=== PATIENT | female | born 1955 | race Caucasian/White ===

== ENCOUNTER → 2016-10-31 | Outpatient (CLI) | payer MEDICAID ==
[~2016-10-31] MED LIST: 00186-0370-20 IH; ALBUTEROL SULFAT3 M3; ALDACTONE; AMOXICILLIN 8751 TAB PO; ASPIR-LOW81 MG PO; ASPIRIN 32325 MG/TAB PO; ASPIRIN E.C. 8181 MG PO; ATARAX 10MG10 MG/TAB PO; ATROVENT INHALE14 GM IH; ATROVENT NASAL15 ML NS; AUGMENTIN 875 M1 TAB PO; BACTRIM DS 8001 TAB PO; BENADRYL50 MG PO; BUMETANIDE1 MG PO; CALCIUM 600 + V1 TAB PO; CALCIUM 600MG+D1 TAB PO; CALCIUM1 CAP PO; CALCIUM600 M2 PO; CARAFATE 1GM1 G PO; CELEBREX 200MG200 MG PO; CEPHALEXIN500 M1 PO; CIPRO 500MG TA500 MG PO; CLARITIN 1010 MG/TAB PO; CLARITIN10 MG PO; CLEOCIN HC150 MG/CAP PO; CLEOCIN HCL300 MG PO; CLOTRIM ANTIFUNGAL1% TP; CYMBALTA 30MG30 MG PO; CYMBALTA 60MG60 MG PO; CYMBALTA30 M1 PO; CYMBALTA30 MG PO; CYMBALTA60 MG PO; DITROPAN 5MG TAB5 MG PO; DOXYCYCLINE 10100 MG PO; DUONEB 3 MG/3 ML3 ML IH; FERRO-TIME325 MG PO; FERROUS SU325 MG/TAB PO; FERROUS SULFATE65 MG PO; FERROUSAL325 MG PO; FLONASEALLERGY; FLONASEALLERGY NS; FORTAMET1000 MG PO; GABAPENTIN; GABAPENTIN TAB600 MG PO; GABAPENTIN400 M1 PO; GABAPENTIN600 MG PO; GABAPENTIN800 MG PO; GLUCOPHAGE1000 MG PO; GLUCOPHAGE500 MG/TAB PO; IPRATROPIUM BROM3 M1 IH; IRON324 M1 PO; IRON65 M1 PO; K-LOR CON; KLOR-CON20 MEQ PO; LASIX 20MG TABL20 MG PO; LASIX 40MG TABL40 MG PO; LASIX20 MG PO; LEVAQUIN 750MG750 M1 PO; LEVOTHYROXINE PO; LIPITOR20 MG PO; LISINOPRIL20 MG PO; LORATADINE10 MG PO; LOVAZA1 GM; LOVAZA1 GM PO; METFORMIN HCL1000 MG PO; METFORMIN1000 MG PO; METFORMIN500 MG PO; MIRAPEX0.125 MG PO; MIRAPEX0.25 MG PO; MS CONTIN 330 MG/TAB PO; MUCINEX 60600 MG/TA1 PO; MYRBETR25MG PO; NATURAL CALCIUM PO; NATURE'S BLEN1000 IU PO; NEURONTIN400 MG PO; NEURONTIN600 MG/TAB PO; NIASPAN500 MG PO; NITROQUICK0.4 MG SL; NITROSTAT0.4 MG SL; NORCO 325 MG-51 TAB PO; NORCO 325 MG-7.1 TAB PO; PATANOL OPHTHALM5 ML OU; PERCOCET 325 MG1 TAB PO; PIROXICAM; PREDNISONE10 MG PO; PREDNISONE20 MG PO; PREVACID 30MG30 M1 PO; PREVACID 30MG30 MG PO; PRIL40 PO; PROAIR HFA0.09 MG/AC IH; PROVENTIL0.09 MG/A1 IH; REGLAN 5MG T5 MG/TAB PO; RT ADVAIR 528 DISKUS IH; RT SPIRIVA18 MCG IH; SINGULAIR 110 MG/TAB PO; SINGULAIR10 MG PO; SMZ/TMPDS PO; SPIRIVA INH IH; SPIRIVA18 MCG IH; SYMBICORT1 AE1; SYMBICORT1 AE2 IH; SYMBICORT1 AE3 IH; SYMBICORT1 AER IH; SYNTHROID0.05 MG PO; SYNTHROID0.05 MG/TA PO; TRICOR145 MG PO; ULTRAM 50MG TAB50 MG PO; ULTRAM50 MG PO; VENTOLIN0.09 MG IH; VERAPAMIL; VERAPAMIL HCL360 MG PO; VERAPAMIL PO; VERELAN360 MG PO; VICODIN 5/5001 UDTAB PO; VITAMIN C PO; VITAMIN D 400400 IU PO; VITAMIN D1000 IU PO; VITAMIN D2000 I1 PO; VITAMIN D31000 IU PO; VITAMIN D50000 I1 PO; XOPENEX HF0.045 MG/A IH; ZANTAC 300300 MG PO; ZESTRIL 20MG TA20 MG PO; ZYLOPRIM 100MG100 MG PO; [UNRECOGNIZED DRUG - OTHER]
== END ==
LOC: MC.RAD 11:40
DX: Z12.31 Encounter for screening mammogram for malignant neoplasm of breast (principal); Z80.3 Family history of malignant neoplasm of breast

== ENCOUNTER 2016-11-14 11:52 | Observation (INO) | payer MEDICAID ==
[~2016-11-14] VITALS: Ht 170.2 cm; Wt 176.0 kg
[~2016-11-14 11:52] MED LIST changes: -ATROVENT NASAL15 ML NS; -CALCIUM 600MG+D1 TAB PO; -CARAFATE 1GM1 G PO; -FLONASEALLERGY NS; -IPRATROPIUM BROM3 M1 IH; -MUCINEX 60600 MG/TA1 PO; -PATANOL OPHTHALM5 ML OU; -XOPENEX HF0.045 MG/A IH
[2016-11-14] MEDS ORDERED: IPRATROPIUM BROM3 M1 IH (12:10)
[2016-11-14] MEDS ORDERED: ASPIRIN E.C. 8181 MG PO (12:11)
[2016-11-14 12:25] LABS: BASO % 0.3 % (0.0-2.0); EOS # 0.2 (0.0-0.7); EOS % 2.3 % (0-4.0); GRAN # 5.4 (1.4-6.5); GRAN % 68.4 % (42.2-75.2); HEMOGLOBIN 12.2 g/dl (12.5-16.0); LYMPH # 1.1 (1.2-3.4); LYMPH % 14.2 % (20.0-51.0); MEAN CELL VOLUME 92 fl (80.0-100.0); MEAN CORPUSCULAR HEMOGLOBIN 30 pg (27.0-31.0); MEAN CORPUSCULAR HGB CONC 33 g/dl (33.0-37.0); MEAN PLATELET VOLUME 9.1 fl (7.4-10.4); MONO # 1.1 (0.1-0.6); MONO % 13.7 % (1.7-9.3); PLATELET COUNT 303 K/mm3 (130-400); RED BLOOD COUNT 4.03 M/mm3 (4.10-5.30); REDCELL DISTRIBUTION WIDTH-CV 13.3 % (11.5-14.5); WHITE BLOOD COUNT 7.9 K/mm3 (4.8-10.8)
[2016-11-14 12:38] LABS: ADJUSTED CALCIUM 9.6 mg/dL (8.4-10.2); ALANINE AMINOTRANSFERASE 45 U/L (9-52); ALBUMIN 3.9 gm/dL (3.5-5.0); ALKALINE PHOSPHATASE 87 U/L (50-136); ANION GAP 10 mmol/L (7-16); BILIRUBIN,TOTAL 0.9 mg/dL (0.0-1.0); BLOOD UREA NITROGEN 18 mg/dL (7-17); CALCIUM 9.5 mg/dL (8.4-10.2); CARBON DIOXIDE 32 mmol/L (22-30); CHLORIDE 95 mmol/L (98-107); CREATINE KINASE 66 U/L (30-135); GLUCOSE 145 mg/dL (74-106); POTASSIUM 3.8 mmol/L (3.4-5.0); SODIUM 138 mmol/L (137-145)
[2016-11-14 12:39] LABS: INR 1.3 (0.8-3.0); PROTHROMBIN TIME 14.6 SECONDS (9.7-12.8)
[2016-11-14] MEDS ORDERED: CALCIUM 600MG+D1 TAB PO (12:42)
[2016-11-14] MEDS ORDERED: FLONASEALLERGY NS (12:44)
[2016-11-14] MEDS ORDERED: ATROVENT NASAL15 ML NS (12:46)
[2016-11-14] MEDS ORDERED: MUCINEX 60600 MG/TA1 PO (12:46)
[2016-11-14] MEDS ORDERED: ZESTRIL 20MG TA20 MG PO (12:47)
[2016-11-14] MEDS ORDERED: XOPENEX HF0.045 MG/A IH (12:47)
[2016-11-14 12:49] LABS: B-TYPE NATRIURETIC PEPTIDE 57 pg/mL (0-125)
[2016-11-14 13:19] LABS: TROPONIN-I < 0.012 ng/mL (0.000-0.034)
[2016-11-14 17:16] VITALS: BP 134/63; PULSE 85; TEMP 97.3
[2016-11-14 19:25] VITALS: BP 140/68; PULSE 91; TEMP 98.4
[2016-11-14 23:22] VITALS: BP 154/59; PULSE 86; TEMP 98.8
[2016-11-15] VITALS (7 sets, daily range): BP systolic 130–157; BP diastolic 52–79; PULSE 91–99; TEMP 98.3–99.7
[2016-11-15 08:01] LABS: CHOLESTEROL 121 mg/dL (120-200); HDL CHOLESTEROL 31 mg/dL; LDL CHOLESTEROL 43 mg/dL; TRIGLYCERIDE 237 mg/dL
[2016-11-15 08:06] LABS: TROPONIN-I < 0.012 ng/mL (0.000-0.034)
[2016-11-15] MEDS ORDERED: CARAFATE 1GM1 G PO (16:04)
== END 2016-11-15 16:45 | disposition home or self-care (01) ==
LOC: COL.ER 11:52 → MEDICAL 14:07
PROVIDERS: Emergency Medicine
DX: R07.9 Chest pain, unspecified (principal); K21.9 Gastro-esophageal reflux disease without esophagitis; J44.9 Chronic obstructive pulmonary disease, unspecified; K22.70 Barrett's esophagus without dysplasia; E66.01 Morbid (severe) obesity due to excess calories; G47.33 Obstructive sleep apnea (adult) (pediatric); E11.40 Type 2 diabetes mellitus with diabetic neuropathy, unspecified; Z79.84 Long term (current) use of oral hypoglycemic drugs; E78.5 Hyperlipidemia, unspecified; Z99.81 Dependence on supplemental oxygen; I50.9 Heart failure, unspecified
CPT/HCPCS: A9502; G0378; J1650; J2785; J7030

== ENCOUNTER 2017-04-15 08:55 | Day surgery (SDC) | payer MEDICAID ==
[~2017-04-15] VITALS: Ht 170.2 cm; Wt 163.7 kg
[~2017-04-15 08:55] MED LIST changes: +ATROVENT NASAL15 ML NS; +CALCIUM 600MG+D1 TAB PO; +CARAFATE 1GM1 G PO; +FLONASEALLERGY NS; +IPRATROPIUM BROM3 M1 IH; +MUCINEX 60600 MG/TA1 PO; +XOPENEX HF0.045 MG/A IH
[2017-04-15] MEDS ORDERED: CLARITIN 1010 MG/TAB PO (09:38)
[2017-04-15] MEDS ORDERED: PATANOL OPHTHALM5 ML OU (09:40)
[2017-04-15 10:01] VITALS: BP 149/57; PULSE 94; TEMP 98.1
[2017-04-15 11:48] VITALS: BP 143/79; PULSE 96; TEMP 97.8
[2017-04-15] MEDS ORDERED: NORCO 325 MG-51 TAB PO (11:56)
[2017-04-15] MEDS ORDERED: CIPRO 500MG TA500 MG PO (11:56)
[2017-04-15 12:03] VITALS: BP 141/65; PULSE 95; TEMP 97.8
== END 2017-04-15 12:15 | disposition home or self-care (01) ==
LOC: SDCO 08:55
DX: N36.42 Intrinsic sphincter deficiency (ISD) (principal); N39.41 Urge incontinence; I25.10 Atherosclerotic heart disease of native coronary artery without angina pectoris; I11.0 Hypertensive heart disease with heart failure; I50.9 Heart failure, unspecified; J44.9 Chronic obstructive pulmonary disease, unspecified; J31.0 Chronic rhinitis; E78.5 Hyperlipidemia, unspecified; K21.9 Gastro-esophageal reflux disease without esophagitis; E03.9 Hypothyroidism, unspecified; E11.40 Type 2 diabetes mellitus with diabetic neuropathy, unspecified; N19 Unspecified kidney failure; G25.81 Restless legs syndrome; M19.90 Unspecified osteoarthritis, unspecified site; G47.33 Obstructive sleep apnea (adult) (pediatric); Z90.710 Acquired absence of both cervix and uterus; Z90.49 Acquired absence of other specified parts of digestive tract; Z79.84 Long term (current) use of oral hypoglycemic drugs; Z87.891 Personal history of nicotine dependence; Z83.3 Family history of diabetes mellitus; Z82.49 Family history of ischemic heart disease and other diseases of the circulatory system; Z80.41 Family history of malignant neoplasm of ovary; Z80.3 Family history of malignant neoplasm of breast; Z80.0 Family history of malignant neoplasm of digestive organs; Z80.42 Family history of malignant neoplasm of prostate
CPT/HCPCS: J0690; J2765; J7030; L8606

== ENCOUNTER 2017-08-15 15:40 | Emergency (ER) | payer MEDICAID ==
[~2017-08-15] VITALS: Ht 170.2 cm; Wt 160.0 kg
[~2017-08-15 15:40] MED LIST changes: +PATANOL OPHTHALM5 ML OU
[2017-08-15 15:59] VITALS: TEMP 98.8
[2017-08-15] MEDS ORDERED: ULTRAM 50MG TAB50 MG PO (19:23)
[2017-08-15] MEDS ORDERED: DOXYCYCLINE 10100 MG PO (19:23)
[2017-08-15] MEDS ORDERED: PREDNISONE20 MG PO (19:23)
[2017-08-15 19:34] VITALS: BP 130/87; PULSE 91
== END 2017-08-15 19:41 | disposition home or self-care (01) ==
LOC: COL.ER 15:40
DX: J44.1 Chronic obstructive pulmonary disease with (acute) exacerbation (principal); S49.91XA Unspecified injury of right shoulder and upper arm, initial encounter; Z79.84 Long term (current) use of oral hypoglycemic drugs; Z79.82 Long term (current) use of aspirin; X50.0XXA Overexertion from strenuous movement or load, initial encounter
CPT/HCPCS: J1885; J7512

== ENCOUNTER → 2017-10-06 | Outpatient (CLI) | payer MEDICAID | LOC: COL.RAD 12:43 | DX: J98.4 Other disorders of lung (principal) | CPT/HCPCS: Q9967 ==

== ENCOUNTER → 2018-02-25 | Outpatient (CLI) | payer MEDICAID | LOC: COL.RAD 12:24 | DX: J69.0 Pneumonitis due to inhalation of food and vomit (principal) ==

== ENCOUNTER 2018-05-07 10:45 | Outpatient (RCR) | payer MEDICAID | END 2018-05-10 | disposition home or self-care (01) | LOC: MKS.ESL.PT | DX: M54.5 Low back pain (principal); G89.29 Other chronic pain; M25.551 Pain in right hip | CPT/HCPCS: G8978-GP; G8979-GP ==

== ENCOUNTER 2018-05-12 10:00 | Outpatient (RCR) | payer MEDICAID | END 2018-05-13 | disposition still patient (30) | LOC: MKS.ESL.PT | DX: R13.12 Dysphagia, oropharyngeal phase (principal); J69.0 Pneumonitis due to inhalation of food and vomit ==

== ENCOUNTER 2018-07-18 18:32 | Emergency (ER) | payer MEDICAID ==
[~2018-07-18] VITALS: Ht 167.6 cm; Wt 161.8 kg
[2018-07-18 18:37] VITALS: BP 171/75; TEMP 98.2
[2018-07-18 19:01] LABS: COLLECTION METHOD CLEAN CATCH
[2018-07-18 19:28] LABS: MUCOUS Present /lpf; PH 5 (5-8); URINE APPEARANCE Hazy; URINE BACTERIA Rare /hpf; URINE BILIRUBIN Negative (NEGATIVE); URINE BLOOD 1+ (NEGATIVE); URINE COLOR Yellow; URINE GLUCOSE Negative (NEGATIVE); URINE KETONE Negative (NEGATIVE); URINE LEUKOCYTE ESTERASE Trace (NEGATIVE); URINE NITRATE Negative (NEGATIVE); URINE PROTEIN(semi-quant) Negative (NEGATIVE); URINE UROBILINOGEN Negative (NEGATIVE)
[2018-07-18 19:29] LABS: BASO % 0.3 % (0.0-2.0); EOS # 0.2 (0.0-0.7); EOS % 2.5 % (0-4.0); GRAN # 5.1 (1.4-6.5); GRAN % 65.5 % (42.2-75.2); HEMATOCRIT 40.4 % (37.0-47.0); HEMOGLOBIN 12.6 g/dl (12.5-16.0); LYMPH # 1.6 (1.2-3.4); LYMPH % 20.4 % (20.0-51.0); MEAN CELL VOLUME 95 fl (80.0-100.0); MEAN CORPUSCULAR HEMOGLOBIN 30 pg (27.0-31.0); MEAN CORPUSCULAR HGB CONC 31 g/dl (33.0-37.0); MEAN PLATELET VOLUME 9.3 fl (7.4-10.4); MONO # 0.8 (0.1-0.6); MONO % 10.9 % (1.7-9.3); PLATELET COUNT 240 K/mm3 (130-400); RED BLOOD COUNT 4.25 M/mm3 (4.10-5.30); REDCELL DISTRIBUTION WIDTH-CV 13.4 % (11.5-14.5)
[2018-07-18 19:35] LABS: BILIRUBIN,TOTAL 0.2 mg/dL (0.0-1.0); C-REACTIVE PROTEIN 3.3 mg/dL (0.0-0.9); CALCIUM 9.2 mg/dL (8.4-10.2); POTASSIUM 4.1 mmol/L (3.4-5.0)
[2018-07-18] MEDS ORDERED: NORCO 325 MG-51 TAB PO (22:31)
[2018-07-18] MEDS ORDERED: CEPHALEXIN500 M1 PO (22:31)
[2018-07-18 22:50] VITALS: PULSE 90
== END 2018-07-18 22:50 | disposition home or self-care (01) ==
LOC: COL.ER 18:32
PROVIDERS: Emergency Medicine
DX: L76.34 Postprocedural seroma of skin and subcutaneous tissue following other procedure (principal); N39.0 Urinary tract infection, site not specified; I11.0 Hypertensive heart disease with heart failure; I50.9 Heart failure, unspecified; E11.9 Type 2 diabetes mellitus without complications; E78.5 Hyperlipidemia, unspecified; J44.9 Chronic obstructive pulmonary disease, unspecified; E66.01 Morbid (severe) obesity due to excess calories; Z90.49 Acquired absence of other specified parts of digestive tract; Z90.710 Acquired absence of both cervix and uterus; Z99.81 Dependence on supplemental oxygen; Z79.891 Long term (current) use of opiate analgesic; Z79.82 Long term (current) use of aspirin; Z68.43 Body mass index [BMI] 50.0-59.9, adult
CPT/HCPCS: J2405; J3010; J7030; Q9967

== ENCOUNTER 2018-08-06 14:30 | Outpatient (RCR) | payer MEDICAID | END 2018-08-09 | disposition still patient (30) | LOC: WSST | DX: M54.5 Low back pain (principal); G89.29 Other chronic pain; J69.0 Pneumonitis due to inhalation of food and vomit; R13.10 Dysphagia, unspecified ==

== ENCOUNTER 2018-08-28 11:15 | Outpatient (RCR) | payer MEDICAID | END 2018-08-31 15:51 | disposition home or self-care (01) | LOC: MKS.ESL.PT 11:15 | DX: M54.5 Low back pain (principal); G89.29 Other chronic pain ==

== ENCOUNTER → 2018-12-08 | Outpatient (CLI) | payer MEDICAID ==
[2018-12-08 14:01] LABS: ARTERIAL BLD GAS O2 SATURATION 95.4 % (92-100); ARTERIAL BLD GAS TCO2 CT 32.9; ARTERIAL BLOOD GAS BASE EXCESS 4.5 (-2-2); ARTERIAL BLOOD GAS HCO3 31.2 meq/L (22-26); ARTERIAL BLOOD GAS PCO2 55.7 mmHg (35-45); ARTERIAL BLOOD GAS PO2 82.9 mmHg (80-100); ARTERIAL BLOOD GAS pH 7.37 (7.35-7.45)
== END ==
LOC: COL.PUL 12:42
PROVIDERS: Internal Medicine Pulmonary Disease
DX: J44.9 Chronic obstructive pulmonary disease, unspecified (principal); Z87.891 Personal history of nicotine dependence

== ENCOUNTER → 2019-04-21 | Outpatient (CLI) | payer MEDICAID ==
[2019-04-21 12:05] LABS: ARTERIAL BLD GAS O2 SATURATION 96.2 % (92-100); ARTERIAL BLD GAS TCO2 CT 35.1; ARTERIAL BLOOD GAS BASE EXCESS 6.1 (-2-2); ARTERIAL BLOOD GAS HCO3 33.2 meq/L (22-26); ARTERIAL BLOOD GAS PCO2 60.2 mmHg (35-45); ARTERIAL BLOOD GAS PO2 88.2 mmHg (80-100); ARTERIAL BLOOD GAS pH 7.36 (7.35-7.45)
== END ==
LOC: COL.PUL 03-29 10:00
PROVIDERS: Internal Medicine Pulmonary Disease
DX: J96.11 Chronic respiratory failure with hypoxia (principal)

== ENCOUNTER → 2019-11-11 | Outpatient (CLI) | payer MEDICAID | LOC: COL.RAD 14:36 | DX: I27.20 Pulmonary hypertension, unspecified (principal) ==

== ENCOUNTER 2020-05-16 15:11 | Outpatient (CLI) | payer MEDICAID | END 2020-05-19 | LOC: COL.RAD | DX: K31.84 Gastroparesis (principal) | CPT/HCPCS: A9541 ==

== ENCOUNTER → 2020-06-28 | Outpatient (CLI) | payer MEDICAID | LOC: COL.RAD 09:06 | DX: M79.672 Pain in left foot (principal) ==

== ENCOUNTER 2021-02-06 14:43 | Emergency (ER) | payer MEDICAID ==
[~2021-02-06] VITALS: Ht 165.1 cm; Wt 170.5 kg
[~2021-02-06 14:43] MED LIST changes: -AMITRIPTYLINE H10 M1 PO; -CERAVE 360 ML360 ML TP; -CRANBERRY250 MG PO; -DULCOLAX STOOL100 MG PO; -JANUVIA 100MG100 MG PO; -OSCAL 500 TAB500 MG PO; -PEPCID 20MG TAB20 MG PO; -PREPARATIO1 SUPP.REC RC; -PROTONIX 40MG T40 MG PO; -PULMICORT0.5 MG/2 M IH; -THEO-24400 MG PO; -TYLENOL 325MG325 MG PO; -VITAMIN D PO
[2021-02-06 15:28] LABS: BASO % 0.2 % (0.0-2.0); EOS # 0.2 (0.0-0.7); EOS % 1.9 % (0-4.0); GRAN # 5.9 (1.4-6.5); GRAN % 70.7 % (42.2-75.2); HEMATOCRIT 37.9 % (37.0-47.0); HEMOGLOBIN 11.6 g/dl (12.5-16.0); LYMPH # 1.3 (1.2-3.4); LYMPH % 15.6 % (20.0-51.0); MEAN CELL VOLUME 93 fl (80.0-100.0); MEAN CORPUSCULAR HEMOGLOBIN 28 pg (27.0-31.0); MEAN CORPUSCULAR HGB CONC 31 g/dl (33.0-37.0); MEAN PLATELET VOLUME 9.6 fl (7.4-10.4); MONO # 0.9 (0.1-0.6); MONO % 11.4 % (1.7-9.3); PLATELET COUNT 238 K/mm3 (130-400); RED BLOOD COUNT 4.08 M/mm3 (4.10-5.30); REDCELL DISTRIBUTION WIDTH-CV 15.1 % (11.5-14.5)
[2021-02-06 15:43] LABS: ALBUMIN 3.9 gm/dL (3.5-5.0); BILIRUBIN,TOTAL 0.3 mg/dL (0.0-1.0); C-REACTIVE PROTEIN 4.1 mg/dL (0.0-0.9); CALCIUM 9.2 mg/dL (8.4-10.2); CREATININE, serum 1.35 (0.52-1.25); POTASSIUM 4.4 mmol/L (3.4-5.0); TOTAL PROTEIN 7.7 gm/dL (6.4-8.2)
[2021-02-06 16:12] LABS: COLLECTION METHOD CLEAN CATCH
[2021-02-06 16:19] LABS: MUCOUS Present /lpf; PH 6 (5-8); URINE APPEARANCE Hazy; URINE BACTERIA Rare /hpf; URINE BILIRUBIN Negative (NEGATIVE); URINE BLOOD 1+ (NEGATIVE); URINE COLOR Yellow; URINE GLUCOSE 3+ (NEGATIVE); URINE KETONE Negative (NEGATIVE); URINE LEUKOCYTE ESTERASE Negative (NEGATIVE); URINE NITRATE Negative (NEGATIVE); URINE PROTEIN(semi-quant) Negative (NEGATIVE); URINE UROBILINOGEN Negative (NEGATIVE)
[2021-02-06] MEDS ORDERED: DULCOLAX STOOL100 MG PO (16:57)
[2021-02-06] MEDS ORDERED: PREPARATIO1 SUPP.REC RC (16:57)
[2021-02-06 17:29] VITALS: BP 123/75; PULSE 92; TEMP 98
== END 2021-02-06 17:28 | disposition home or self-care (01) ==
LOC: COL.ER 14:43
PROVIDERS: Nurse Practitioner Primary Care
DX: K92.1 Melena (principal); I11.0 Hypertensive heart disease with heart failure; I50.9 Heart failure, unspecified; J44.9 Chronic obstructive pulmonary disease, unspecified; E11.40 Type 2 diabetes mellitus with diabetic neuropathy, unspecified; F32.9 Major depressive disorder, single episode, unspecified; F41.9 Anxiety disorder, unspecified; M10.9 Gout, unspecified; E07.9 Disorder of thyroid, unspecified; Z88.6 Allergy status to analgesic agent; Z87.891 Personal history of nicotine dependence; Z79.52 Long term (current) use of systemic steroids; Z79.84 Long term (current) use of oral hypoglycemic drugs; Z79.899 Other long term (current) drug therapy; Z79.890 Hormone replacement therapy; Z99.81 Dependence on supplemental oxygen
CPT/HCPCS: J7030

== ENCOUNTER → 2021-02-06 | Outpatient (CLI) | payer MEDICAID ==
[~2021-02-06] MED LIST changes: +AMITRIPTYLINE H10 M1 PO; +CERAVE 360 ML360 ML TP; +CRANBERRY250 MG PO; +DULCOLAX STOOL100 MG PO; +JANUVIA 100MG100 MG PO; +OSCAL 500 TAB500 MG PO; +PEPCID 20MG TAB20 MG PO; +PREPARATIO1 SUPP.REC RC; +PROTONIX 40MG T40 MG PO; +PULMICORT0.5 MG/2 M IH; +THEO-24400 MG PO; +TYLENOL 325MG325 MG PO; +VITAMIN D PO
[2021-02-06 09:01] LABS: ARTERIAL BLD GAS O2 SATURATION 97.4 % (92-100); ARTERIAL BLD GAS TCO2 CT 32.9; ARTERIAL BLOOD GAS BASE EXCESS 4.7 (-2-2); ARTERIAL BLOOD GAS HCO3 31.2 meq/L (22-26); ARTERIAL BLOOD GAS PCO2 55.1 mmHg (35-45); ARTERIAL BLOOD GAS PO2 93.1 mmHg (80-100); ARTERIAL BLOOD GAS pH 7.37 (7.35-7.45)
== END ==
LOC: COL.PUL 08:03
PROVIDERS: Internal Medicine Pulmonary Disease
DX: J96.11 Chronic respiratory failure with hypoxia (principal); J96.12 Chronic respiratory failure with hypercapnia

== ENCOUNTER 2021-04-02 15:45 | Emergency (ER) | payer MEDICAID ==
[~2021-04-02] VITALS: Ht 165.1 cm; Wt 165.0 kg
[~2021-04-02 15:45] MED LIST changes: -AMITRIPTYLINE H10 M1 PO; -CERAVE 360 ML360 ML TP; -CRANBERRY250 MG PO; -JANUVIA 100MG100 MG PO; -OSCAL 500 TAB500 MG PO; -PEPCID 20MG TAB20 MG PO; -PROTONIX 40MG T40 MG PO; -PULMICORT0.5 MG/2 M IH; -THEO-24400 MG PO; -TYLENOL 325MG325 MG PO; -VITAMIN D PO
[2021-04-02 16:58] VITALS: TEMP 98.6
[2021-04-02 19:29] LABS: BASO % 0.2 % (0.0-2.0); EOS # 0.2 (0.0-0.7); EOS % 2.2 % (0-4.0); GRAN # 6.2 (1.4-6.5); GRAN % 71.7 % (42.2-75.2); HEMATOCRIT 37.3 % (37.0-47.0); HEMOGLOBIN 11.3 g/dl (12.5-16.0); LYMPH # 1.2 (1.2-3.4); LYMPH % 13.7 % (20.0-51.0); MEAN CELL VOLUME 94 fl (80.0-100.0); MEAN CORPUSCULAR HEMOGLOBIN 28 pg (27.0-31.0); MEAN CORPUSCULAR HGB CONC 30 g/dl (33.0-37.0); MEAN PLATELET VOLUME 9.4 fl (7.4-10.4); MONO % 11.9 % (1.7-9.3); PLATELET COUNT 265 K/mm3 (130-400); RED BLOOD COUNT 3.98 M/mm3 (4.10-5.30); REDCELL DISTRIBUTION WIDTH-CV 14.2 % (11.5-14.5)
[2021-04-02 19:44] LABS: ALBUMIN 3.7 gm/dL (3.5-5.0); BILIRUBIN,TOTAL 0.3 mg/dL (0.0-1.0); CALCIUM 9.6 mg/dL (8.4-10.2); CREATININE, serum 0.76 (0.52-1.25); POTASSIUM 4.5 mmol/L (3.4-5.0)
[2021-04-02 20:04] LABS: ERYTHROCYTE SEDIMENTATION RATE 58 mm/hr (0-30)
[2021-04-02 22:40] LABS: ARTERIAL BLD GAS O2 SATURATION 98.8 % (92-100); ARTERIAL BLD GAS TCO2 CT 32.9; ARTERIAL BLOOD GAS BASE EXCESS 3.7 (-2-2); ARTERIAL BLOOD GAS PCO2 60.2 mmHg (35-45); ARTERIAL BLOOD GAS pH 7.33 (7.35-7.45)
[2021-04-02 22:41] LABS: ARTERIAL BLOOD GAS PO2 151.1 mmHg (80-100)
[2021-04-02] MEDS ORDERED: GLUCOPHAGE1000 MG PO (23:01)
[2021-04-02] MEDS ORDERED: CIPRO 500MG TA500 MG PO (23:08)
[2021-04-02] MEDS ORDERED: CLEOCIN HCL300 MG PO (23:08)
[2021-04-02] MEDS ORDERED: NORCO 325 MG-51 TAB PO (23:17)
[2021-04-03 00:20] VITALS: BP 145/71; PULSE 90
== END 2021-04-03 00:25 | disposition home or self-care (01) ==
LOC: COL.ER 15:45
PROVIDERS: Physician Assistant
DX: E11.621 Type 2 diabetes mellitus with foot ulcer (principal); E11.65 Type 2 diabetes mellitus with hyperglycemia; L97.529 Non-pressure chronic ulcer of other part of left foot with unspecified severity; E11.40 Type 2 diabetes mellitus with diabetic neuropathy, unspecified; J44.9 Chronic obstructive pulmonary disease, unspecified; E66.01 Morbid (severe) obesity due to excess calories; I11.0 Hypertensive heart disease with heart failure; I50.9 Heart failure, unspecified; F32.9 Major depressive disorder, single episode, unspecified; F41.9 Anxiety disorder, unspecified; M10.9 Gout, unspecified; E07.9 Disorder of thyroid, unspecified; Z88.6 Allergy status to analgesic agent; Z88.2 Allergy status to sulfonamides; Z79.899 Other long term (current) drug therapy; Z79.890 Hormone replacement therapy; Z79.84 Long term (current) use of oral hypoglycemic drugs; Z68.44 Body mass index [BMI] 60.0-69.9, adult
CPT/HCPCS: J1815; J2543; J3010; J3370; J7030; J7050

== ENCOUNTER → 2021-04-02 | Outpatient (CLI) | payer MEDICAID ==
[~2021-04-02] MED LIST changes: +AMITRIPTYLINE H10 M1 PO; +CERAVE 360 ML360 ML TP; +CRANBERRY250 MG PO; +DULCOLAX STOOL100 MG PO; +JANUVIA 100MG100 MG PO; +OSCAL 500 TAB500 MG PO; +PEPCID 20MG TAB20 MG PO; +PREPARATIO1 SUPP.REC RC; +PROTONIX 40MG T40 MG PO; +PULMICORT0.5 MG/2 M IH; +THEO-24400 MG PO; +TYLENOL 325MG325 MG PO; +VITAMIN D PO
== END ==
LOC: COL.RAD 11:21
DX: M48.07 Spinal stenosis, lumbosacral region (principal); M47.816 Spondylosis without myelopathy or radiculopathy, lumbar region; M47.814 Spondylosis without myelopathy or radiculopathy, thoracic region

== ENCOUNTER 2021-04-10 07:59 | Day surgery (SDC) | payer MEDICAID ==
[~2021-04-10] VITALS: Ht 165.1 cm; Wt 165.0 kg
[2021-04-10 09:37] VITALS: BP 132/47; PULSE 98; TEMP 98.4
[2021-04-10] MEDS ORDERED: TYLENOL 325MG325 MG PO (09:54)
[2021-04-10] MEDS ORDERED: PROAIR HFA0.09 MG/AC IH (09:56)
[2021-04-10] MEDS ORDERED: AMITRIPTYLINE H10 M1 PO (09:57)
[2021-04-10] MEDS ORDERED: PULMICORT0.5 MG/2 M IH (10:00)
[2021-04-10] MEDS ORDERED: CARAFATE 1GM1 G PO (10:01)
[2021-04-10] MEDS ORDERED: CERAVE 360 ML360 ML TP (10:03)
[2021-04-10] MEDS ORDERED: CRANBERRY250 MG PO (10:04)
[2021-04-10] MEDS ORDERED: PEPCID 20MG TAB20 MG PO (10:24)
[2021-04-10] MEDS ORDERED: JANUVIA 100MG100 MG PO (10:27)
[2021-04-10] MEDS ORDERED: LOVAZA1 GM PO (10:29)
[2021-04-10] MEDS ORDERED: REGLAN 5MG T5 MG/TAB PO (10:30)
[2021-04-10] MEDS ORDERED: OSCAL 500 TAB500 MG PO (10:36)
[2021-04-10] MEDS ORDERED: THEO-24400 MG PO (10:38)
[2021-04-10] MEDS ORDERED: NORCO 325 MG-51 TAB PO (10:40)
[2021-04-10] MEDS ORDERED: CLEOCIN HCL300 MG PO ×2 (10:43→12:59)
[2021-04-10] MEDS ORDERED: VITAMIN D PO (10:45)
[2021-04-10] MEDS ORDERED: PROTONIX 40MG T40 MG PO (10:59)
--- NOTE | 2021-04-10 11:03 | NUR ---
AMBULATED TO BATHROOM WITH ASSIST FROM DAUGHTER. ASSISTED BACK TO BED.
[2021-04-10 13:10] VITALS: BP 125/60; PULSE 94; TEMP 97.5
--- NOTE | 2021-04-10 13:10 | NUR ---
TO RM 5 PER CART FROM PACU. ONCE PATIENT WOKE UP VERY TALKITIVE. 02 SAT 100% ON 4L PER NC. DRESSING CLEAN DRY INTACT. DAUGHTER AT BEDSIDE.
--- NOTE | 2021-04-10 13:20 | NUR ---
DAUGHTER CAME TO DESK AND STATED HER MOTHER FELL TRYING TO WALK TO BATHROOM. DAUGHTER STATED SHE UNHOOKED HER B/P MACHINE AND LET SIDE RAIL DOWN. PATIENT STATED SHE COUGHT HER SHE SHOE (CROCKS) ON THE CARPET. PATIENT ABLE TO ROLL SELF UP ONTO HER KNEES. NURSING STAFF AND DAUGHTER ASSISTED INTO WC. NO INJURING NOTED. STATED SHE FELL ON HER R HIP. C/O RIGHT HIP BEING SORE. DR ALONSO INTO SEE AND EVALUATE PATIENT AFTER FALL. POST OP CHECK, BEDRAILS WHERE AND HOOKED TO B/P MONITOR.
[2021-04-10 14:00] VITALS: BP 147/58; PULSE 104
--- NOTE | 2021-04-10 14:00 | NUR ---
DRESSING OVER INCISION L FOOT CLEAN DRY INTACT.
--- NOTE | 2021-04-10 14:10 | NUR ---
RECEIVED DISCHARGE INSTRUCTIONS AND VERBALIZED UNDERSTANDING. DISCONTINUED IV AND INT- CATHETER INTACT PATIENT GETTING DRESSED WITH HELP OF DAUGHTER.
--- NOTE | 2021-04-10 14:25 | NUR ---
DISCHARGED PER WC BY NURSING STAFF TO [facility] CAR IN CARE OF DAUGHTER.
== END 2021-04-10 14:30 | disposition home or self-care (01) ==
LOC: SDCO 07:59
DX: L08.89 Other specified local infections of the skin and subcutaneous tissue (principal); D64.9 Anemia, unspecified; J44.9 Chronic obstructive pulmonary disease, unspecified; M10.9 Gout, unspecified; I50.9 Heart failure, unspecified; I11.0 Hypertensive heart disease with heart failure; I86.8 Varicose veins of other specified sites; I25.10 Atherosclerotic heart disease of native coronary artery without angina pectoris; G43.909 Migraine, unspecified, not intractable, without status migrainosus; G47.39 Other sleep apnea; E11.9 Type 2 diabetes mellitus without complications; E03.9 Hypothyroidism, unspecified; E78.00 Pure hypercholesterolemia, unspecified; K72.90 Hepatic failure, unspecified without coma; M19.90 Unspecified osteoarthritis, unspecified site; K21.9 Gastro-esophageal reflux disease without esophagitis; F17.210 Nicotine dependence, cigarettes, uncomplicated; Z79.899 Other long term (current) drug therapy; Z79.890 Hormone replacement therapy; Z79.891 Long term (current) use of opiate analgesic; Z20.822 Contact with and (suspected) exposure to COVID-19; Z79.82 Long term (current) use of aspirin; Z79.84 Long term (current) use of oral hypoglycemic drugs; Z80.1 Family history of malignant neoplasm of trachea, bronchus and lung; Z80.0 Family history of malignant neoplasm of digestive organs
CPT/HCPCS: J2250; J2704; J2795; J3010; J7030

== ENCOUNTER → 2021-10-12 | Outpatient (CLI) | payer MEDICAID ==
[~2021-10-12] MED LIST changes: +AMITRIPTYLINE H10 M1 PO; +CERAVE 360 ML360 ML TP; +CRANBERRY250 MG PO; +JANUVIA 100MG100 MG PO; +OSCAL 500 TAB500 MG PO; +PEPCID 20MG TAB20 MG PO; +PROTONIX 40MG T40 MG PO; +PULMICORT0.5 MG/2 M IH; +THEO-24400 MG PO; +TYLENOL 325MG325 MG PO; +VITAMIN D PO
== END ==
LOC: COL.RAD 10-11 13:00
DX: J96.11 Chronic respiratory failure with hypoxia (principal); I27.20 Pulmonary hypertension, unspecified

== ENCOUNTER 2022-01-01 18:29 | Observation (INO) | payer MEDICAID ==
[~2022-01-01] VITALS: Ht 165.1 cm; Wt 150.9 kg
[2022-01-01 19:09] LABS: HEMATOCRIT 38.5 % (37.0-47.0); HEMOGLOBIN 12.2 g/dl (12.5-16.0); MEAN CELL VOLUME 89 fl (80.0-100.0); MEAN CORPUSCULAR HEMOGLOBIN 28 pg (27-31); MEAN CORPUSCULAR HGB CONC 32 g/dl (33.0-37.0); MEAN PLATELET VOLUME 9.2 fl (7.4-10.4); PLATELET COUNT 288 K/mm3 (130-400); RED BLOOD COUNT 4.35 M/mm3 (4.10-5.30); REDCELL DISTRIBUTION WIDTH-CV 14.7 % (11.5-14.5)
[2022-01-01 19:23] LABS: ALBUMIN 3.4 gm/dL (3.4-4.8); BILIRUBIN,TOTAL 0.8 mg/dL (0.2-1.2); CALCIUM 9.6 mg/dL (8.4-10.2); CREATININE, serum 1.05 mg/dL (0.57-1.11); POTASSIUM 3.8 mmol/L (3.5-4.5); TOTAL PROTEIN 8.6 gm/dL (6.2-8.1)
[2022-01-01 19:49] LABS: BAND 14 % (0-10); NEUTROPHILS 55 % (42.0-75.2)
[2022-01-01 19:50] LABS: LYMPHOCYTE 18 % (20.0-51.0); PLATELET ESTIMATE NORMAL (NORMAL)
[2022-01-01 19:52] LABS: HYPOCHROMIA 2+
[2022-01-01] MEDS ORDERED: TRULICITY0.75 MG/0. SQ (23:30)
[2022-01-02 05:33] LABS: BASO % 0.2 % (0.0-2.0); EOS # 0.1 K/mm3 (0.0-0.7); EOS % 1.4 % (0.0-4.0); GRAN # 7.1 K/mm3 (1.4-6.5); GRAN % 70.1 % (42.2-75.2); HEMOGLOBIN 10.8 g/dl (12.5-16.0); LYMPH # 1.4 K/mm3 (1.2-3.4); LYMPH % 13.6 % (20.0-51.0); MEAN CELL VOLUME 91 fl (80.0-100.0); MEAN CORPUSCULAR HEMOGLOBIN 29 pg (27-31); MEAN CORPUSCULAR HGB CONC 32 g/dl (33.0-37.0); MEAN PLATELET VOLUME 9.1 fl (7.4-10.4); MONO # 1.4 K/mm3 (0.1-0.6); MONO % 14.2 % (1.7-9.3); PLATELET COUNT 233 K/mm3 (130-400); RED BLOOD COUNT 3.77 M/mm3 (4.10-5.30); REDCELL DISTRIBUTION WIDTH-CV 14.8 % (11.5-14.5)
[2022-01-02 05:41] LABS: HEMATOCRIT 34.2 % (37.0-47.0)
[2022-01-02 05:49] LABS: CALCIUM 8.4 mg/dL (8.4-10.2); CREATININE, serum 1.07 mg/dL (0.57-1.11); POTASSIUM 3.8 mmol/L (3.5-4.5)
--- NOTE | 2022-01-02 05:57 | NUR ---
66 yo female admitted for further care and management of sepsis likely secondary to a skin/soft tissue infection (acute on chronic bilater lower extremity cellulitis). ht 165.1 cm wt 150.9 kg (adj wt 94.6 kg) SCr 1.05 with estimated CrCl ~50 ml/min Plan: Patient is unlikely to follow population based kinetics secondary to body habitus (BMI 55.4 kg/m2). Will give an initial loading dose of vancomycin 2000 mg x1; followed by a maintenance regimen of vancomycin 1750 mg q24h to target a goal trough of 10-15 mcg/ml. Will follow patient's renal function, micro data, and vancomycin levels as indicated to assess for any necessary changes to regimen. Thank you for this dosing consult.
[2022-01-02 08:00] VITALS: BP 106/39; PULSE 101; TEMP 98
--- NOTE | 2022-01-02 09:20 | NUR ---
PT SITTING ON SIDE OF BED EATING BREAKFAST. AM MEDS GIVEN ORDERED. PT HYPOTENSIVE THIS AM. AM DOSE OF LISINOPRIL HELD AT THIS TIME. PT UP TO BR WITH SBA. BILATERAL LOWER EXT DOPPLER COMPLETE AND TECHS REPORTED NEGATIVE FOR CLOTS.
--- NOTE | 2022-01-02 10:13 | NUR ---
Initial visit; Patient appeared very pleased to have a visit from Spare Person. She requested prayer. Spare Person offered prayer and offered encouragement and God's blessings. Spare Person will follow up since when she mentioned this patient seemed pleased.
--- NOTE | 2022-01-02 10:45 | NUR ---
Paint Mixer Machine met with patient to discuss discharge planning. Patient lives in [place] with her daughter, Luz (ph#[phone]) [address]. Shaniqua Martinez for primary care. Patient obtains medications from [facility] with no difficulties and uses a walker for ambulation. Patient also uses home oxygen from [facility] and reports she is on four liters at baseline. Patient reports independence with ADLS and plans to return home at time of discharge. Patient has DPOA-HC in EMR which designates her daughter, Luz. Discharge Plan: Home
[2022-01-02 11:28] VITALS: BP 118/48; PULSE 85; TEMP 98.5
[2022-01-02 15:56] VITALS: BP 98/47; PULSE 80; TEMP 98.9
[2022-01-02 19:36] VITALS: BP 105/46; PULSE 96; TEMP 99
[2022-01-02 23:47] VITALS: BP 123/41; PULSE 96; TEMP 98.7
--- NOTE | 2022-01-03 00:21 | NUR ---
PATIENT ALERT AND ORIENTED. BLE RED AND WARM. R SIDE WORSE THEN L. HS MEDS GIVEN PER EMAR. AMBULATED WITH STANDBY ASSIST TO BATHROOM THROUGHOUT NIGHT. WEARING CPAP AT .
[2022-01-03 04:12] VITALS: BP 115/48; PULSE 103; TEMP 98.4
[2022-01-03 06:30] LABS: BASO % 0.3 % (0.0-2.0); EOS # 0.2 K/mm3 (0.0-0.7); EOS % 3.1 % (0.0-4.0); GRAN # 4.5 K/mm3 (1.4-6.5); GRAN % 60.6 % (42.2-75.2); LYMPH # 1.4 K/mm3 (1.2-3.4); LYMPH % 18.8 % (20.0-51.0); MEAN CELL VOLUME 92 fl (80.0-100.0); MEAN CORPUSCULAR HEMOGLOBIN 28 pg (27-31); MEAN CORPUSCULAR HGB CONC 31 g/dl (33.0-37.0); MEAN PLATELET VOLUME 9.8 fl (7.4-10.4); MONO # 1.2 K/mm3 (0.1-0.6); MONO % 16.7 % (1.7-9.3); PLATELET COUNT 251 K/mm3 (130-400); RED BLOOD COUNT 3.53 M/mm3 (4.10-5.30); REDCELL DISTRIBUTION WIDTH-CV 14.6 % (11.5-14.5)
[2022-01-03 06:50] LABS: HEMATOCRIT 32.5 % (37.0-47.0)
[2022-01-03 06:51] LABS: CALCIUM 8.1 mg/dL (8.4-10.2); CREATININE, serum 1.01 mg/dL (0.57-1.11); POTASSIUM 3.8 mmol/L (3.5-4.5)
[2022-01-03 07:09] VITALS: BP 121/42; PULSE 104; TEMP 97.9
[2022-01-03] MEDS ORDERED: AMOXICILLIN 8751 TAB PO (09:24)
--- NOTE | 2022-01-03 09:26 | NUR ---
Spray Gun Operator attended clinical rounds with the team and patient to discharge home today. No needs identified at this time. Discharge Plan: Home
--- NOTE | 2022-01-03 09:42 | NUR ---
PT UP INDEPENDENTLY TO BR. HOSPITALIST ROUNDED AND DISCHARGED PATEINT AFTER ROUNDING. PT VERBALIZED UNDERSTANDING. PT REPORTS IMPROVED OVERALL FEELING.
[2022-01-03] MEDS ORDERED: PROBIOTIC ACID1 EAC3 PO (09:58)
--- NOTE | 2022-01-03 11:19 | NUR ---
DSISCHARGE INSTRUCTIONS REVIEWED WITH PT. QUESTIONS ANSWERED. PT LEFT UNIT IN WHEEL CHAIR WITH STAFF.
--- NOTE | 2022-01-03 12:48 | NUR ---
Follow-up visit; Patient thanked Wheelman for stopping to check on her and say "good-bye" before she was discharged. Wheelman wished Joaquina well and let her know how much she enjoyed visiting with her.
== END 2022-01-03 11:20 | disposition home or self-care (01) ==
LOC: COL.ER 18:29 → SURG 20:54
PROVIDERS: Personal Emergency Response Attendant; Physician Assistant; Student in an Organized Health Care Education/Training Program; ADMIT Student in an Organized Health Care Education/Training Program
DX: L03.116 Cellulitis of left lower limb (principal); R60.0 Localized edema; L03.115 Cellulitis of right lower limb; G25.81 Restless legs syndrome; K21.9 Gastro-esophageal reflux disease without esophagitis; J44.9 Chronic obstructive pulmonary disease, unspecified; J96.11 Chronic respiratory failure with hypoxia; I10 Essential (primary) hypertension; E66.01 Morbid (severe) obesity due to excess calories; G47.33 Obstructive sleep apnea (adult) (pediatric); E78.5 Hyperlipidemia, unspecified; E03.9 Hypothyroidism, unspecified; E11.42 Type 2 diabetes mellitus with diabetic polyneuropathy; M10.9 Gout, unspecified; F32.9 Major depressive disorder, single episode, unspecified; Z79.84 Long term (current) use of oral hypoglycemic drugs; Z79.82 Long term (current) use of aspirin
CPT/HCPCS: 99223-AI; 99232-AI; G0378; J1650; J2543; J3370; J7030; J7040; J7050

== ENCOUNTER 2022-03-09 17:59 | Observation (INO) | payer MEDICAID ==
[~2022-03-09] VITALS: Ht 167.6 cm; Wt 152.6 kg
[~2022-03-09 17:59] MED LIST changes: +PROBIOTIC ACID1 EAC3 PO; +TRULICITY0.75 MG/0. SQ
[2022-03-09 19:19] LABS: BASO % 0.2 % (0.0-2.0); EOS # 0.3 K/mm3 (0.0-0.7); EOS % 2.8 % (0.0-4.0); GRAN # 5.3 K/mm3 (1.4-6.5); GRAN % 60.7 % (42.2-75.2); LYMPH # 1.9 K/mm3 (1.2-3.4); LYMPH % 21.8 % (20.0-51.0); MEAN CELL VOLUME 89 fl (80.0-100.0); MEAN CORPUSCULAR HEMOGLOBIN 28 pg (27-31); MEAN CORPUSCULAR HGB CONC 32 g/dl (33.0-37.0); MEAN PLATELET VOLUME 9.2 fl (7.4-10.4); MONO # 1.3 K/mm3 (0.1-0.6); MONO % 14.2 % (1.7-9.3); PLATELET COUNT 277 K/mm3 (130-400); RED BLOOD COUNT 4.25 M/mm3 (4.10-5.30)
[2022-03-09 19:36] LABS: ALANINE AMINOTRANSFERASE 15 U/L (0-55); ALBUMIN 2.8 gm/dL (3.4-4.8); ALKALINE PHOSPHATASE 83 U/L (40-150); ANION GAP 12 mmol/L (7-16); AST,SGOT 16 U/L (5-34); BILIRUBIN,TOTAL 0.3 mg/dL (0.2-1.2); BLOOD UREA NITROGEN 19 mg/dL (10-20); C-REACTIVE PROTEIN 17.19 mg/dL (0.00-0.50); CALCIUM 9.6 mg/dL (8.4-10.2); CARBON DIOXIDE 30 mmol/L (23-31); CHLORIDE 102 mmol/L (98-107); CREATININE, serum 0.94 mg/dL (0.57-1.11); GLUCOSE 212 mg/dL (70-99); SODIUM 144 mmol/L (136-145); TOTAL PROTEIN 8.1 gm/dL (6.2-8.1)
[2022-03-09 19:44] LABS: COLLECTION METHOD CLEAN CATCH
[2022-03-09 19:45] LABS: TROPONIN-I < 0.010 ng/mL (0.00-0.033)
[2022-03-09 19:59] LABS: MUCOUS Present (NOT PRESENT); PH 5 (5-8); URINE APPEARANCE Hazy (CLEAR/HAZY); URINE BACTERIA Moderate /hpf (NONE SEEN); URINE BILIRUBIN Negative (NEGATIVE); URINE BLOOD 1+ (NEGATIVE); URINE COLOR Yellow (YELLOW); URINE GLUCOSE Negative (NEGATIVE); URINE KETONE Trace (NEGATIVE); URINE LEUKOCYTE ESTERASE 1+ (NEGATIVE); URINE NITRATE Positive (NEGATIVE); URINE PROTEIN(semi-quant) Negative (NEGATIVE); URINE UROBILINOGEN Negative (NEGATIVE)
[2022-03-09] MEDS ORDERED: ALBUTEROL0.83 MG/ML IH (21:11)
[2022-03-09] MEDS ORDERED: CALCIUM 600MG+D1 TAB PO (21:11)
[2022-03-09] MEDS ORDERED: PULMICORT0.5 MG/2 M IH (21:11)
[2022-03-09] MEDS ORDERED: PERFOROMIS20 MCG/2 M IH (21:12)
[2022-03-09] MEDS ORDERED: PRINIVIL40 MG PO (21:12)
[2022-03-09] MEDS ORDERED: CLARITIN 1010 MG/TAB PO (21:12)
[2022-03-09] MEDS ORDERED: VERELAN360 MG PO (21:13)
--- NOTE | 2022-03-09 22:30 | NUR ---
pt admitted to room 318 per cart from ED, alert and oriented, on baseline 4L O2 per NC, brought CPAP from home, IV present in RAC with Vanc running from ED. left lower leg with 2-3+ edema, erythema, and dry, flaky skin, c/o burning pain, fentanyl given in ED @1930 per report from ANA Carnes. pt able to ambulate to restroom with walker independently, but instructed to call for help when needed.
[2022-03-09 22:31] VITALS: BP 150/54; PULSE 78; TEMP 98.2
[2022-03-10 00:04] VITALS: BP 143/96; PULSE 75; TEMP 98
[2022-03-10 04:08] VITALS: BP 126/46; PULSE 83; TEMP 98.6
--- NOTE | 2022-03-10 05:26 | NUR ---
66 yo female admitted for further care and management of sepsis likely secondary to a skin/soft tissue source and/or urinary source. ht 167.6 cm wt 150 kg (adj wt 95.6 kg) SCr 0.94 with estimated CrCl >60 ml/min half life 16.7 hours Plan: Patient is unlikely to follow population based kinetics secondary to body habitus (BMI 53.1 kg/m2). Will give an initial loading dose of vancomycin 3000 mg x1 (20 mg/kg); followed by a maintenance regimen of vancomycin 1500 mg q18h to target a goal trough of 10-15 mcg/ml. Will follow patient's renal function, micro data, and vancomycin levels as indicated to assess for any necessary changes to regimen. Thank you for this dosing consult.
[2022-03-10 07:02] LABS: CALCIUM 9.1 mg/dL (8.4-10.2); CREATININE, serum 0.79 mg/dL (0.57-1.11); POTASSIUM 3.7 mmol/L (3.5-4.5)
[2022-03-10 07:29] VITALS: BP 148/54; PULSE 81; TEMP 99.1
--- NOTE | 2022-03-10 07:30 | NUR ---
Patient is on th chair, alert and oriented x 4, VSS, HTN. States her pain is 10/10, fentanyl provided. Telemetry in place, NSR. 4L O2 NC. Assessment completed, antibiotics started, no other needs at this time. Call light within reach.
[2022-03-10 07:41] LABS: BASO % 0.2 % (0.0-2.0); EOS # 0.3 K/mm3 (0.0-0.7); EOS % 2.9 % (0.0-4.0); GRAN # 6.2 K/mm3 (1.4-6.5); GRAN % 68.9 % (42.2-75.2); HEMOGLOBIN 11.1 g/dl (12.5-16.0); LYMPH # 1.2 K/mm3 (1.2-3.4); LYMPH % 12.8 % (20.0-51.0); MEAN CELL VOLUME 92 fl (80.0-100.0); MEAN CORPUSCULAR HEMOGLOBIN 28 pg (27-31); MEAN CORPUSCULAR HGB CONC 30 g/dl (33.0-37.0); MEAN PLATELET VOLUME 9.6 fl (7.4-10.4); MONO # 1.3 K/mm3 (0.1-0.6); MONO % 14.8 % (1.7-9.3); PLATELET COUNT 283 K/mm3 (130-400); RED BLOOD COUNT 3.98 M/mm3 (4.10-5.30); REDCELL DISTRIBUTION WIDTH-CV 14.2 % (11.5-14.5)
[2022-03-10 07:44] LABS: HEMATOCRIT 36.6 % (37.0-47.0)
--- NOTE | 2022-03-10 12:24 | NUR ---
SW met with patient to complete intake. Patient states that she lives in [facility] and her daughter is Luz [phone] who is also appointed as her DPOA of . Patient states that she uses a walker and is indepndent with ADL's. PCP is Dr. Martinez, and pharmacy is [facility]. Patient states that she plans to return to her home upon DC. SW will continue to follow. DC plan: home
[2022-03-10 12:25] VITALS: BP 145/47; BP 98/65; PULSE 89; TEMP 98
[2022-03-10 15:31] VITALS: BP 93/58; PULSE 88; TEMP 97.6
--- NOTE | 2022-03-10 18:20 | NUR ---
Patient rated her pain in the LLE as 10/10 in the morning and midday. She did not asked for more pain meds later. She got all her medications IV. No other complains. Report will be given to night RN.
--- NOTE | 2022-03-10 20:39 | NUR ---
TX GIVEN VIA MOUTHPIECE, 4L NC AFTER TX.
[2022-03-10 21:28] VITALS: BP 131/52; PULSE 95; TEMP 98.5
[2022-03-11] VITALS (9 sets, daily range): BP systolic 89–131; BP diastolic 30–80; PULSE 80–91; TEMP 98.1–98.8
--- NOTE | 2022-03-11 06:20 | NUR ---
ASSESSMENT COMPLETE FOR THIS SHIFT. PT RESTING IN HER RECLINER WATCHING TV. PT COMPLAINED OF LEG PAIN. PT GIVEN FENTANYL FOR PAIN. PT FELT FENTANYL WAS EFFECTIVE FOR HER PAIN. PT DENIED CHEST PAIN, PALPITATIONS, N,V,D, SOB OR DIZZINESS. PT HAD SOME SOFT B/P'S THIS SHIFT. HOSPITALIST CALLED. NS BOLUS ORDERED AND GIVEN. WILL CONTINUE TO MONITOR. PT EXPRESSED NO OTHER NEEDS AT THIS TIME. CALL LIGHT WITHIN REACH.
[2022-03-11 07:24] LABS: HEMOGLOBIN 10.2 g/dl (12.5-16.0); MEAN CELL VOLUME 88 fl (80.0-100.0); MEAN CORPUSCULAR HEMOGLOBIN 27 pg (27-31); MEAN CORPUSCULAR HGB CONC 31 g/dl (33.0-37.0); MEAN PLATELET VOLUME 9.5 fl (7.4-10.4); PLATELET COUNT 291 K/mm3 (130-400); RED BLOOD COUNT 3.72 M/mm3 (4.10-5.30)
[2022-03-11 07:27] LABS: HEMATOCRIT 32.9 % (37.0-47.0)
[2022-03-11 07:47] LABS: CALCIUM 8.8 mg/dL (8.4-10.2); CREATININE, serum 1.46 mg/dL (0.57-1.11); POTASSIUM 3.7 mmol/L (3.5-4.5)
--- NOTE | 2022-03-11 08:00 | NUR ---
Patient is resting in bed, alert and oriented x 4, soft BP. Telemetry in place. Assessment completed, meds provided. No other needs at this time. Call light within reach.
[2022-03-11 09:54] LABS: BAND 4 % (0-10); EOSINOPHIL 3 % (0-4); LYMPHOCYTE 17 % (20.0-51.0); NEUTROPHILS 60 % (42.0-75.2); PLATELET ESTIMATE NORMAL (NORMAL)
--- NOTE | 2022-03-11 12:44 | NUR ---
Medical Staff Services Manager spoke with Hospitalist and requested PT/OT orders.
--- NOTE | 2022-03-11 13:44 | NUR ---
Ro: Religion Situation: passenger representative went to room on rounds Background: PT was resting and content Assessment: PT asked for prayers for her family as there as been a in her family PT appreciated the visit Recommendation: Appliance Technician will follow up as needed
--- NOTE | 2022-03-11 20:37 | NUR ---
TX GIVEN VIA MOUTHPIECE, TOLERATED WELL.
[2022-03-12 00:10] VITALS: BP 117/49; PULSE 82; TEMP 98
--- NOTE | 2022-03-12 00:19 | NUR ---
Pt alert and oriented, resting quietly. Follows commands. Up OOB mutiple times as a standby assist d/t urinary incontinence. Pt voids in brief, but asked if an external catheter could be utilized d/t frequent voids. Purewick place on pt to monitor output. Pt denies chest pain/SOB. Reports tenderness in the LLE, but states it has improved since initial admission. BLE are red/flaky/3+ edema. LLE worse than the right. Shift assessment performed. Medications administered per orders and education provided. VS stable. Pt's BP has been running soft. Providers are aware. Notified GLENIS Prince this evening. No new changes and continuing with IV fluids. Pt denies dizziness/lightheadedness with low BP. Pt is able to stand and apply pressure to right extremity. Continuing with IV fluids continuosly and IV antibx. Pt doesn not report and questions at this time, will continue to monitor.
[2022-03-12 04:07] VITALS: BP 108/30; PULSE 91; TEMP 98.1
--- NOTE | 2022-03-12 04:57 | NUR ---
No adverse events overnight. Pt alert and oriented, resting quietly. Prn pain tylenol administered x 1 this morning for pain. Continuing with IV fluids and IV antibx overnight. VS stable. BP remains soft, but pt denies dizziness/lightheadedness. Satting WNL on 4L NC. Afebrile. LLE and RLE remains warm/red/swollen. Adequate urine output overnight. Pt does not report any questions at this time, will continue to monitor.
[2022-03-12 08:14] VITALS: BP 117/36; PULSE 84; TEMP 98.5
[2022-03-12 10:02] LABS: CREATININE, serum 0.92 mg/dL (0.57-1.11); POTASSIUM 3.8 mmol/L (3.5-4.5)
--- NOTE | 2022-03-12 10:39 | NUR ---
Patient is resting in bed, alert and oriented x 4, soft BP. Denies pain in LLE, states cellulities is improving and feel better. Telemetry in place, NSR. Assessment completed, meds provided. No other needs at this time. Call light within reach.
[2022-03-12] MEDS ORDERED: DOXYCYCLINE HY100 MG PO (11:38)
--- NOTE | 2022-03-12 14:02 | NUR ---
Discharge instructions provided at 1233 hrs, all questions answered. Pt waiting for daugher till 13 45 hrs. Pt leave at this time.
--- NOTE | 2022-03-12 14:03 | NUR ---
The patient discharged back home today, 03/12. No additional needs at this time.
== END 2022-03-12 12:33 | disposition home or self-care (01) ==
LOC: COL.ER 17:59 → MEDICAL 19:57
PROVIDERS: Internal Medicine; Nurse Practitioner; Nurse Practitioner Family; Physician Assistant; ADMIT Family Medicine
DX: A41.9 Sepsis, unspecified organism (principal); R60.0 Localized edema; N17.9 Acute kidney failure, unspecified; I95.89 Other hypotension; E78.5 Hyperlipidemia, unspecified; J44.9 Chronic obstructive pulmonary disease, unspecified; Z20.822 Contact with and (suspected) exposure to COVID-19; J96.11 Chronic respiratory failure with hypoxia; G47.33 Obstructive sleep apnea (adult) (pediatric); E66.01 Morbid (severe) obesity due to excess calories; E11.40 Type 2 diabetes mellitus with diabetic neuropathy, unspecified; E11.22 Type 2 diabetes mellitus with diabetic chronic kidney disease; N18.9 Chronic kidney disease, unspecified; E03.9 Hypothyroidism, unspecified; E83.52 Hypercalcemia; I08.1 Rheumatic disorders of both mitral and tricuspid valves; D64.9 Anemia, unspecified; M20.62 Acquired deformities of toe(s), unspecified, left foot; M10.9 Gout, unspecified; K21.9 Gastro-esophageal reflux disease without esophagitis; Z87.11 Personal history of peptic ulcer disease; Z79.890 Hormone replacement therapy; G25.81 Restless legs syndrome; M20.61 Acquired deformities of toe(s), unspecified, right foot; Z87.891 Personal history of nicotine dependence; F32.A Depression, unspecified; Z79.84 Long term (current) use of oral hypoglycemic drugs; Z79.899 Other long term (current) drug therapy; Z68.43 Body mass index [BMI] 50.0-59.9, adult
CPT/HCPCS: 99232-AI; 99233-AI; G0378; J1644; J1650; J1815; J2543; J3010; J3370; J7030; J7050

== ENCOUNTER 2022-06-01 13:57 | Emergency (ER) | payer MEDICAID ==
[~2022-06-01] VITALS: Ht 167.6 cm; Wt 146.8 kg
[~2022-06-01 13:57] MED LIST changes: +ALBUTEROL0.83 MG/ML IH; +DOXYCYCLINE HY100 MG PO; +PERFOROMIS20 MCG/2 M IH; +PRINIVIL40 MG PO
[2022-06-01 14:49] LABS: HEMOGLOBIN 11.7 g/dl (12.5-16.0); MEAN CELL VOLUME 87 fl (80.0-100.0); MEAN CORPUSCULAR HEMOGLOBIN 28 pg (27-31); MEAN CORPUSCULAR HGB CONC 32 g/dl (33.0-37.0); PLATELET COUNT 187 K/mm3 (130-400); RED BLOOD COUNT 4.21 M/mm3 (4.10-5.30); REDCELL DISTRIBUTION WIDTH-CV 15.5 % (11.5-14.5)
[2022-06-01 14:52] LABS: HEMATOCRIT 36.4 % (37.0-47.0)
[2022-06-01 15:11] LABS: ALANINE AMINOTRANSFERASE 20 U/L (0-55); ALBUMIN 3.1 gm/dL (3.4-4.8); ALKALINE PHOSPHATASE 88 U/L (40-150); ANION GAP 12 mmol/L (7-16); AST,SGOT 30 U/L (5-34); BILIRUBIN,TOTAL 0.3 mg/dL (0.2-1.2); BLOOD UREA NITROGEN 14 mg/dL (10-20); CALCIUM 9.3 mg/dL (8.4-10.2); CARBON DIOXIDE 26 mmol/L (23-31); CHLORIDE 100 mmol/L (98-107); CREATININE, serum 0.82 mg/dL (0.57-1.11); GLUCOSE 122 mg/dL (70-99); POTASSIUM 3.8 mmol/L (3.5-4.5); SODIUM 138 mmol/L (136-145); TOTAL PROTEIN 7.5 gm/dL (6.2-8.1)
[2022-06-01 15:18] LABS: TROPONIN-I < 0.010 ng/mL (0.00-0.033)
[2022-06-01] MEDS ORDERED: PREDNISONE20 MG PO (15:22)
[2022-06-01 15:33] LABS: BAND 7 % (0-10); EOSINOPHIL 1 % (0-4); LYMPHOCYTE 28 % (20.0-51.0); NEUTROPHILS 39 % (42.0-75.2); PLATELET ESTIMATE NORMAL (NORMAL)
[2022-06-01 15:34] LABS: ANISOCYTOSIS 1+; HYPOCHROMIA 1+
[2022-06-01 15:37] VITALS: BP 111/47; PULSE 84; TEMP 98.2
== END 2022-06-01 15:38 | disposition home or self-care (01) ==
LOC: COL.ER 13:57
PROVIDERS: Emergency Medicine
DX: U07.1 COVID-19 (principal); J44.1 Chronic obstructive pulmonary disease with (acute) exacerbation; G47.33 Obstructive sleep apnea (adult) (pediatric); D64.9 Anemia, unspecified; Z99.81 Dependence on supplemental oxygen; Z99.11 Dependence on respirator [ventilator] status; Z73.0 Burn-out
CPT/HCPCS: J2930

== ENCOUNTER 2023-07-25 10:47 | Emergency (ER) | payer MEDICAID ==
[~2023-07-25] VITALS: Ht 167.6 cm; Wt 158.6 kg
[2023-07-25 11:02] VITALS: TEMP 98
[2023-07-25 12:18] LABS: BASO % 0.4 % (0.0-2.0); EOS # 0.1 K/mm3 (0.0-0.7); EOS % 1.4 % (0.0-4.0); GRAN # 5.4 K/mm3 (1.4-6.5); GRAN % 73.5 % (42.2-75.2); HEMATOCRIT 42.9 % (37.0-47.0); HEMOGLOBIN 13.6 g/dl (12.5-16.0); LYMPH % 13.8 % (20.0-51.0); MEAN CELL VOLUME 94 fl (80.0-100.0); MEAN CORPUSCULAR HEMOGLOBIN 30 pg (27-31); MEAN CORPUSCULAR HGB CONC 32 g/dl (33.0-37.0); MONO # 0.8 K/mm3 (0.1-0.6); MONO % 10.6 % (1.7-9.3); PLATELET COUNT 270 K/mm3 (130-400); RED BLOOD COUNT 4.58 M/mm3 (4.10-5.30); REDCELL DISTRIBUTION WIDTH-CV 14.8 % (11.5-14.5)
[2023-07-25 12:27] LABS: ALANINE AMINOTRANSFERASE 12 U/L (0-55); ALBUMIN 3.7 gm/dL (3.4-4.8); ALKALINE PHOSPHATASE 101 U/L (40-150); ANION GAP 12 mmol/L (7-16); AST,SGOT 15 U/L (5-34); BILIRUBIN,TOTAL 0.7 mg/dL (0.2-1.2); BLOOD UREA NITROGEN 16 mg/dL (10-20); CALCIUM 10.1 mg/dL (8.4-10.2); CARBON DIOXIDE 29 mmol/L (23-31); CHLORIDE 101 mmol/L (98-107); CREATININE, serum 0.82 mg/dL (0.57-1.11); GLUCOSE 151 mg/dL (70-99); POTASSIUM 3.7 mmol/L (3.5-4.5); SODIUM 142 mmol/L (136-145); TOTAL PROTEIN 8.8 gm/dL (6.2-8.1)
[2023-07-25 12:35] LABS: TROPONIN-I < 0.010 ng/mL (0.00-0.033)
[2023-07-25 12:37] LABS: COLLECTION METHOD CLEAN CATCH
[2023-07-25 13:09] LABS: URINE APPEARANCE Clear (CLEAR/HAZY); URINE BLOOD TRACE-INTACT (NEGATIVE); URINE COLOR Yellow (YELLOW); URINE GLUCOSE Negative (NEGATIVE); URINE KETONE Negative (NEGATIVE); URINE NITRATE Negative (NEGATIVE); URINE PROTEIN(semi-quant) TRACE (NEGATIVE); URINE UROBILINOGEN 0.2 E.U/dL (0.2-1.0)
[2023-07-25 13:10] LABS: SQUAMOUS EPITHELIAL 0-2 /hpf (0-10); URINE RBC 0-2 /hpf (0-2); URINE WBC None Seen /hpf (0-2)
[2023-07-25 14:40] VITALS: BP 152/86; PULSE 93
== END 2023-07-25 14:40 | disposition home or self-care (01) ==
LOC: COL.ER 10:47
PROVIDERS: Emergency Medicine
DX: R60.0 Localized edema (principal); J44.9 Chronic obstructive pulmonary disease, unspecified; I48.91 Unspecified atrial fibrillation; R79.1 Abnormal coagulation profile; I11.0 Hypertensive heart disease with heart failure; I50.9 Heart failure, unspecified; Z79.01 Long term (current) use of anticoagulants; Z99.81 Dependence on supplemental oxygen; Z79.899 Other long term (current) drug therapy
CPT/HCPCS: Q9967

== ENCOUNTER 2023-09-16 12:25 | Inpatient (IN) | payer MEDICAID ==
[~2023-09-16] VITALS: Ht 165.1 cm; Wt 144.1 kg
[2023-09-16] VITALS (16 sets, daily range): BP systolic 129–182; BP diastolic 50–85; PULSE 96–143; TEMP 97.5–100.5
[~2023-09-16 12:25] MED LIST changes: +COREG12.5 MG PO; +DANAZOL100 MG PO; +ELIQUIS 5MG PO; +PACERONE400 MG PO; +TEZSPIRE210 MG/1.9 SQ; -THEO-24400 MG PO; +TRELEGY ELLIPT1 EACH IH; -TYLENOL 325MG325 MG PO; +TYLENOL 8 HR PO; +UNIPHYL600 MG PO; +VITAMIN D31000 I1 PO; +ZESTRIL40 MG PO
[2023-09-16 13:05] LABS: HEMOGLOBIN 11.4 g/dl (12.5-16.0); MEAN CELL VOLUME 92 fl (80.0-100.0); MEAN CORPUSCULAR HEMOGLOBIN 28 pg (27-31); MEAN CORPUSCULAR HGB CONC 31 g/dl (33.0-37.0); MEAN PLATELET VOLUME 8.8 fl (7.4-10.4); PLATELET COUNT 403 K/mm3 (130-400); RED BLOOD COUNT 4.02 M/mm3 (4.10-5.30); REDCELL DISTRIBUTION WIDTH-CV 14.6 % (11.5-14.5)
[2023-09-16 13:08] LABS: INR 1.3 (0.8-3.0); PROTHROMBIN TIME 14.3 SECONDS (9.7-12.8)
[2023-09-16 13:09] LABS: HEMATOCRIT 36.8 % (37.0-47.0)
[2023-09-16 13:38] LABS: ALANINE AMINOTRANSFERASE 6 U/L (0-55); ALBUMIN 3.2 gm/dL (3.4-4.8); ALKALINE PHOSPHATASE 86 U/L (40-150); ANION GAP 16 mmol/L (7-16); AST,SGOT 24 U/L (5-34); BILIRUBIN,TOTAL 1.1 mg/dL (0.2-1.2); BLOOD UREA NITROGEN 15 mg/dL (10-20); CALCIUM 10.6 mg/dL (8.4-10.2); CARBON DIOXIDE 25 mmol/L (23-31); CHLORIDE 100 mmol/L (98-107); CREATININE, serum 1.15 mg/dL (0.57-1.11); GLUCOSE 151 mg/dL (70-99); POTASSIUM 4.3 mmol/L (3.5-4.5); SODIUM 141 mmol/L (136-145); TOTAL PROTEIN 8.2 gm/dL (6.2-8.1)
[2023-09-16 13:44] LABS: TROPONIN-I < 0.010 ng/mL (0.00-0.033)
[2023-09-16 13:56] LABS: BAND 4 % (0-10); EOSINOPHIL 2 % (0-4); LYMPHOCYTE 15 % (20.0-51.0); NEUTROPHILS 49 % (42.0-75.2); PLATELET ESTIMATE INCREASED (NORMAL)
[2023-09-16 13:57] LABS: HYPOCHROMIA 2+
[2023-09-16] MEDS ORDERED: DOXYCYCLINE 10100 MG PO (14:43)
[2023-09-16 14:52] LABS: THEOPHYLLINE 18.8 ug/mL (8.0-20.0)
[2023-09-16 15:02] LABS: TSH w REFLEX 7.963 uIU/mL (0.350-4.940)
--- NOTE | 2023-09-16 18:33 | NUR ---
Vancomycin Initial Dosing Pharmacy Note Ordering provider: Christiano Milner MD Indication/duration: B/L CELLULITIS, 5 days LABS: SCr 1.15, CrCl~60, GFR 52 Recommendation: Give Vancomycin 2 gm IV x1 loading dose, then 1 gm IV q12h. Pharmacy will continue to closely monitor and check a trough on 09/18/23. Loading dose: 2 grams Maintenance dose: 1 gram every 12 hours Trough goal: 10-15 ug/mL
--- NOTE | 2023-09-16 21:11 | NUR ---
MANAGER CABLE Aspen notified of patients temperature of 100.5 by phone.
[2023-09-16 22:35] LABS: COLLECTION METHOD CLEAN CATCH
[2023-09-16 23:26] LABS: SQUAMOUS EPITHELIAL 0-2 /hpf (0-10); URINE APPEARANCE Clear (CLEAR/HAZY); URINE BACTERIA None Seen /hpf (NONE SEEN); URINE BLOOD 1+ (NEGATIVE); URINE COLOR Yellow (YELLOW); URINE GLUCOSE Negative (NEGATIVE); URINE KETONE Negative (NEGATIVE); URINE NITRATE Negative (NEGATIVE); URINE PROTEIN(semi-quant) Negative (NEGATIVE); URINE UROBILINOGEN 0.2 E.U/dL (0.2-1.0)
--- NOTE | 2023-09-16 23:53 | NUR ---
PCT Kinjal reported BP of 182/67 to this nurse. This nurse assessed pt and rechecked BP. BP was 145/60. Pt has complaints of CHAVES and temperature 99.0. Administered PRN Tylenol as ordered. INT to Lt AC fell out due to tape coming off. Started 20g IV into Rt hand. Pt tolerated well with no complaints.
[2023-09-17] VITALS (8 sets, daily range): BP systolic 133–163; BP diastolic 47–80; PULSE 79–103; TEMP 97.5–98.5
[2023-09-17 06:09] LABS: HEMOGLOBIN 10.4 g/dl (12.5-16.0); MEAN CELL VOLUME 89 fl (80.0-100.0); MEAN CORPUSCULAR HEMOGLOBIN 28 pg (27-31); MEAN CORPUSCULAR HGB CONC 32 g/dl (33.0-37.0); MEAN PLATELET VOLUME 8.8 fl (7.4-10.4); PLATELET COUNT 349 K/mm3 (130-400); REDCELL DISTRIBUTION WIDTH-CV 14.3 % (11.5-14.5)
[2023-09-17 06:10] LABS: HEMATOCRIT 32.9 % (37.0-47.0)
[2023-09-17 06:38] LABS: ALBUMIN 2.9 gm/dL (3.4-4.8); CALCIUM 9.8 mg/dL (8.4-10.2); CREATININE, serum 1.29 mg/dL (0.57-1.11); MAGNESIUM 1.5 mg/dL (1.6-2.6); PHOSPHOROUS 4.1 mg/dL (2.3-4.7); POTASSIUM 3.7 mmol/L (3.5-4.5)
[2023-09-17 07:04] LABS: BAND 3 % (0-10); EOSINOPHIL 3 % (0-4); LYMPHOCYTE 8 % (20.0-51.0); NEUTROPHILS 63 % (42.0-75.2)
[2023-09-17 07:05] LABS: PLATELET ESTIMATE NORMAL (NORMAL)
--- NOTE | 2023-09-17 09:26 | NUR ---
Initial visit; Patient thanked Clinching Machine Operator for offering prayer and God's Blessings, for healing and for visiting and keeping her in Clinching Machine Operator's prayers.
--- NOTE | 2023-09-17 15:31 | NUR ---
parking worker met with patient and her son-in-law at bedside. Pt reports she lives with her daughter, Luz [phone] and son-in-law. She sees Dr. Henry and obtains medications from [facility] with no difficulties. Pt is independent with ADLS and uses a FWW, oxygen, and Trilogy from [facility]. She intends to return home at discharge. Luz is DPOA-HC for patient which is on file. Discharge Plan: Home with family
[2023-09-17] MEDS ORDERED: DOXYCYCLINE 10100 MG PO (23:29)
[2023-09-17] MEDS ORDERED: CORDARONE200 MG/TAB PO (23:30)
[2023-09-17] MEDS ORDERED: COREG 6.256.25 MG/TA PO (23:30)
[2023-09-17] MEDS ORDERED: LASIX 20MG TABL20 MG PO (23:31)
[2023-09-17] MEDS ORDERED: ALDACTONE 25MG25 M1 PO (23:31)
[2023-09-18] VITALS (7 sets, daily range): BP systolic 130–163; BP diastolic 63–70; PULSE 77–90; TEMP 97.9–98.5
--- NOTE | 2023-09-18 06:32 | NUR ---
Pt had uneventful night this shift. Shift assessment completed. VSS. Pt ambulated to the bathroom x1 assist multiple times with no complications. Pt reports no pain at this time. Call light within reach.
[2023-09-18 07:10] LABS: HEMOGLOBIN 10.5 g/dl (12.5-16.0); MEAN CELL VOLUME 92 fl (80.0-100.0); MEAN CORPUSCULAR HEMOGLOBIN 27 pg (27-31); MEAN CORPUSCULAR HGB CONC 30 g/dl (33.0-37.0); MEAN PLATELET VOLUME 8.6 fl (7.4-10.4); PLATELET COUNT 365 K/mm3 (130-400); RED BLOOD COUNT 3.83 M/mm3 (4.10-5.30); REDCELL DISTRIBUTION WIDTH-CV 14.1 % (11.5-14.5)
[2023-09-18 07:22] LABS: HEMATOCRIT 35.3 % (37.0-47.0)
[2023-09-18 07:34] LABS: ALBUMIN 2.9 gm/dL (3.4-4.8); CALCIUM 9.8 mg/dL (8.4-10.2); CREATININE, serum 1.3 mg/dL (0.57-1.11); MAGNESIUM 1.7 mg/dL (1.6-2.6); PHOSPHOROUS 3.2 mg/dL (2.3-4.7); POTASSIUM 4.1 mmol/L (3.5-4.5)
[2023-09-18 08:01] LABS: BAND 2 % (0-10); EOSINOPHIL 2 % (0-4); LYMPHOCYTE 12 % (20.0-51.0); NEUTROPHILS 61 % (42.0-75.2); NUCLEATED RED BLOOD CELL 1 (0-6)
[2023-09-18 08:02] LABS: HYPOCHROMIA 2+; PLATELET ESTIMATE NORMAL (NORMAL)
[2023-09-18] MEDS ORDERED: PRINIVIL20 MG PO (10:01)
[2023-09-18] MEDS ORDERED: DEMADEX 20MG20 M1 PO (10:01)
[2023-09-18] MEDS ORDERED: AMOXICILLIN 8751 TAB PO (11:54)
--- NOTE | 2023-09-18 14:00 | NUR ---
PATIENT DISCHARGE INSTRUCTIONS GIVEN. PATIENT VERBALIZED UNDERSTANDING. PATIENT IV REMOVED. PATIENT FAMILY AT BEDSIDE. PATIENT ESCORTED OUT BY PCT AND FAMILY MEMBER OUT OF UNIT.
== END 2023-09-18 14:15 | disposition home or self-care (01) | DRG 309 ==
LOC: COL.ER 12:25 → MEDICAL 16:58
PROVIDERS: Family Medicine; Nurse Practitioner; Nurse Practitioner Family; ADMIT Internal Medicine
DX: I48.0 Paroxysmal atrial fibrillation (principal); I50.30 Unspecified diastolic (congestive) heart failure; Z79.01 Long term (current) use of anticoagulants; I27.20 Pulmonary hypertension, unspecified; I12.9 Hypertensive chronic kidney disease with stage 1 through stage 4 chronic kidney disease, or unspecified chronic kidney disease
CPT/HCPCS: A4314; J0696; J1940; J2704; J3370; J3475; J7050; Q3014; Q9967

== ENCOUNTER 2023-09-27 19:44 | Inpatient (IN) | payer MEDICAID ==
[~2023-09-27] VITALS: Ht 165.1 cm; Wt 150.4 kg
[~2023-09-27 19:44] MED LIST changes: +ALDACTONE 25MG25 M1 PO; +CORDARONE200 MG/TAB PO; +COREG 6.256.25 MG/TA PO; +DEMADEX 20MG20 M1 PO; +PRINIVIL20 MG PO
[2023-09-27 20:46] LABS: MEAN CELL VOLUME 90 fl (80.0-100.0); MEAN CORPUSCULAR HGB CONC 31 g/dl (33.0-37.0); MEAN PLATELET VOLUME 9.7 fl (7.4-10.4); PLATELET COUNT 326 K/mm3 (130-400); RED BLOOD COUNT 3.39 M/mm3 (4.10-5.30); REDCELL DISTRIBUTION WIDTH-CV 14.3 % (11.5-14.5)
[2023-09-27 20:51] LABS: HEMATOCRIT 30.6 % (37.0-47.0); HEMOGLOBIN 9.4 g/dl (12.5-16.0); MEAN CORPUSCULAR HEMOGLOBIN 28 pg (27-31)
[2023-09-27 21:02] LABS: ALANINE AMINOTRANSFERASE 13 U/L (0-55); ALBUMIN 2.7 gm/dL (3.4-4.8); ALKALINE PHOSPHATASE 120 U/L (40-150); ANION GAP 17 mmol/L (7-16); AST,SGOT 26 U/L (5-34); BILIRUBIN,TOTAL 0.9 mg/dL (0.2-1.2); BLOOD UREA NITROGEN 32 mg/dL (10-20); CALCIUM 9.4 mg/dL (8.4-10.2); CARBON DIOXIDE 28 mmol/L (23-31); CHLORIDE 94 mmol/L (98-107); CREATININE, serum 1.78 mg/dL (0.57-1.11); GLUCOSE 191 mg/dL (70-99); POTASSIUM 3.7 mmol/L (3.5-4.5); SODIUM 139 mmol/L (136-145); TOTAL PROTEIN 7.8 gm/dL (6.2-8.1)
[2023-09-27 21:08] LABS: TROPONIN-I < 0.010 ng/mL (0.00-0.033)
[2023-09-27 21:27] LABS: BAND 3 % (0-10); LYMPHOCYTE 13 % (20.0-51.0); NEUTROPHILS 68 % (42.0-75.2); PLATELET ESTIMATE NORMAL (NORMAL)
[2023-09-27 21:28] LABS: HYPOCHROMIA 3+
[2023-09-27 22:33] VITALS: BP 142/67; PULSE 142
[2023-09-27 23:00] VITALS: BP 142/67; PULSE 135
[2023-09-27 23:15] VITALS: BP 123/59; PULSE 128
[2023-09-28] VITALS (724 sets, daily range): BP systolic 86–157; BP diastolic 58–82; PULSE 55–138; TEMP 98–99; O2SAT 24–99
--- NOTE | 2023-09-28 00:05 | NUR ---
PT ARRIVED VIA STRETCHER FROM ED. MOVED TO ICU BED AND CONNECTED TO MONITORING. HR IRREGULAR IN AFIB WITH RATE IN THE 130'S. CURRENTLY HAS AMIONDARONE INFUSING AT 1 MG/MIN TO R A/V PIV AND CARDIZEM 15 MG/HR TO L F/A PIV. PT ON 4L O2, INCREASED TO 5L DUE TO SATURATION 85%. PT HAS CLOTHING, SHOES, HOME TRILOGY MACHINE, GLASSES, AND PHONE IN POSSESSION. RT NOTIFIED OF HOME BIPAP MACHINE. PT REPORTS FEELING POORLY, VERY WEAK AND TIRED. GENERALIZED PAIN. TAMMY OH APRN AT BEDSIDE AND WILL FOLLOW WITH ORDERS. NOTED YEAST LIKE RASH UNDER PANNIS AND TO PERINEAL AREA THROUGH TO BUTTOCKS. PT REPORTS HAVING BEEN TRYING TO GET RID OF IT. 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 STATES HAS SEEN DR. MONK SINCE DISCHARGE AND JUST HAD BIOPSIES TAKE. PT HAS TWO BANDAIDS TO LUIS HAMMOND, FROM BIOPSY SITE AND REFUSED THIS RN REMOVING THEM AT THIS TIME.
[2023-09-28 06:09] LABS: MEAN CELL VOLUME 91 fl (80.0-100.0); MEAN CORPUSCULAR HGB CONC 30 g/dl (33.0-37.0); MEAN PLATELET VOLUME 9.5 fl (7.4-10.4); PLATELET COUNT 351 K/mm3 (130-400); REDCELL DISTRIBUTION WIDTH-CV 14.5 % (11.5-14.5)
[2023-09-28 06:12] LABS: HEMOGLOBIN 9.3 g/dl (12.5-16.0); MEAN CORPUSCULAR HEMOGLOBIN 27 pg (27-31)
[2023-09-28 06:18] LABS: CALCIUM 9.3 mg/dL (8.4-10.2); CREATININE, serum 1.83 mg/dL (0.57-1.11); MAGNESIUM 1.5 mg/dL (1.6-2.6); PHOSPHOROUS 4.1 mg/dL (2.3-4.7); POTASSIUM 4.2 mmol/L (3.5-4.5)
[2023-09-28 06:56] LABS: BAND 10 % (0-10); LYMPHOCYTE 9 % (20.0-51.0); NEUTROPHILS 54 % (42.0-75.2)
[2023-09-28 06:57] LABS: PLATELET ESTIMATE NORMAL (NORMAL)
[2023-09-28 06:58] LABS: STOMATOCYTE 1+
--- NOTE | 2023-09-28 07:00 | NUR ---
0700REPORT RECEIVED FROM ANA SOLITARIO. PT RESTING IN BED, VSS, OXYGEN AT 5L PER NC. DRIPS INFUSING ORDERED, SEE MAR/IV FLOWSHEET. PT IS ALERT AND ORIENTED, DENIES NEEDS AT THIS TIME, CALL LIGHT IN REACH. 0830 OXYGEN LEVELS NOTED TO FALL TO LOW 80'S WHEN PT TRIES TO TALK OR REPOSITION SELF IN BED. CANNULA SWITCHED TO HIGH FLOW, INCREASED FLOW RATE TO 7L.
[2023-09-28 07:01] LABS: COLLECTION METHOD CATHETER
[2023-09-28 07:26] LABS: URINE APPEARANCE Hazy (CLEAR/HAZY); URINE COLOR Yellow (YELLOW)
[2023-09-28 07:27] LABS: SQUAMOUS EPITHELIAL >50 /hpf (0-10); URINE BACTERIA Moderate /hpf (NONE SEEN); URINE BLOOD TRACE-INTACT (NEGATIVE); URINE GLUCOSE Negative (NEGATIVE); URINE KETONE Negative (NEGATIVE); URINE NITRATE Negative (NEGATIVE); URINE PROTEIN(semi-quant) TRACE (NEGATIVE); URINE RBC 0-2 /hpf (0-2); URINE UROBILINOGEN 0.2 E.U/dL (0.2-1.0)
--- NOTE | 2023-09-28 15:15 | NUR ---
Call placed to [facility]. Patient will not be a candidate for tissue and/or cornea transplant due to dx of Lyphoma. Case number is [id number]. Spoke with family regarding home. Awaiting decision to be made. Lithographed Plate Inspector Marla called to provide family with religous support. Call placed to Dr Tracey (as she was invoice control clerk) to make her aware of the patients .
--- NOTE | 2023-09-28 15:43 | NUR ---
Initial visit; Following patient's , Dispatcher Relay was called upon family's request. Dispatcher Relay offered her condolences and learned about Joaquina's declining health and about her family. Dispatcher Relay spoke briefly about grief and let them know Dispatcher Relay is available to help with 'grief care' and offering other resources. Dispatcher Relay offered prayer and then invited family to pray with her. Dispatcher Relay let them know a Knockout Machine Operator or Nurse with give them options of local homes and answer any other questions when they decide they are comfortable with making a decision. Dispatcher Relay offered God's blessings.
--- NOTE | 2023-09-28 17:02 | NUR ---
Per family request Lola notified of patient's passing. They will be here soon to crop picker patient
--- NOTE | 2023-09-28 18:33 | NUR ---
1100 OLEARY CATHETER INSERTED ORDERED BY DR RAMIRES. DURING THIS TIME O2 SATS DROPPED TO LOW 80'S, OXYGEN INCREASED TO 10L. 1150 PULSE NOTED TO BE 50-60 AND BP 99/55. CARDIZEM DRIP TITRATED PER ORDER AND DISCONTINUED. [address] RAMIRES FOR HYPOTENSION. 1345 EPI 0.5MG GIVEN IVP PER ORDER FROM DR RAMIRES FOR BRADYCARDIA. 1350 HEART RATE NOTED TO BE 39. CALL MADE TO DR JIANG TO ASK HIM TO COME EVALUATE PT. HE STATED "STOP AMIO DRIP AND I WILL COME SEE PT LATER." DRIP DISCONTINUED. 1400 PT ALERT AND ASKING FOR MOUTH SWABS AND TO TAKE OFF TRILOGY MASK, HIGH FLOW CANULA APPLIED. 1405 FAMILY ALERTED NURSE THAT PT WAS "HAVING A SEIZURE". WHEN NURSE ENTERED ROOM PT WAS FOUND TO BE GRUNTING AND NOT RESPONDING TO PAINFUL STIMULI, BLUE LIPS, FOAM COMING OUT OF THE MOUTH. HEART RATE MONITOR READ IN THE 30S BUT PATIENT HAD NO PULSE. CAROTID CHECK. CODE BLUE INITIATED. SEE CODE RECORD. 1421 TIME OF CALLED BY DR JIANG. 1804 BODY TAKEN BY HOME.
== END 2023-09-28 18:01 | disposition expired | DRG 309 ==
LOC: COL.ER 19:44 → ICU 23:20
PROVIDERS: Nurse Practitioner Family; Personal Emergency Response Attendant; ADMIT Internal Medicine
PROC: 5A12012 Performance of Cardiac Output, Single, Manual (ICD-10-PCS; principal; 2023-09-28)
PROC: 0BH17EZ Insertion of Endotracheal Airway into Trachea, Via Natural or Artificial Opening (ICD-10-PCS; 2023-09-28)
PROC: 5A09357 Assistance with Respiratory Ventilation, Less than 24 Consecutive Hours, Continuous Positive Airway Pressure (ICD-10-PCS; 2023-09-28)
DX: I48.91 Unspecified atrial fibrillation (principal); I13.0 Hypertensive heart and chronic kidney disease with heart failure and stage 1 through stage 4 chronic kidney disease, or unspecified chronic kidney disease; Z68.43 Body mass index [BMI] 50.0-59.9, adult; I31.39 Other pericardial effusion (noninflammatory); R57.9 Shock, unspecified; E66.01 Morbid (severe) obesity due to excess calories; E11.22 Type 2 diabetes mellitus with diabetic chronic kidney disease; N18.9 Chronic kidney disease, unspecified; I50.9 Heart failure, unspecified; E78.5 Hyperlipidemia, unspecified; G20.A1 Parkinson's disease without dyskinesia, without mention of fluctuations; L68.0 Hirsutism; G25.81 Restless legs syndrome; G47.33 Obstructive sleep apnea (adult) (pediatric); E11.40 Type 2 diabetes mellitus with diabetic neuropathy, unspecified; M10.9 Gout, unspecified; E03.9 Hypothyroidism, unspecified; D64.9 Anemia, unspecified; K21.9 Gastro-esophageal reflux disease without esophagitis; J43.9 Emphysema, unspecified; E87.6 Hypokalemia; F32.A Depression, unspecified; Z88.2 Allergy status to sulfonamides; Z88.8 Allergy status to other drugs, medicaments and biological substances; Z91.041 Radiographic dye allergy status; Z88.5 Allergy status to narcotic agent; Z91.013 Allergy to seafood; Z79.01 Long term (current) use of anticoagulants; Z90.49 Acquired absence of other specified parts of digestive tract; Z90.710 Acquired absence of both cervix and uterus; Z98.51 Tubal ligation status; Z85.72 Personal history of non-Hodgkin lymphomas; Z79.899 Other long term (current) drug therapy; Z79.890 Hormone replacement therapy; Z79.2 Long term (current) use of antibiotics; Z87.891 Personal history of nicotine dependence; Z23 Encounter for immunization
CPT/HCPCS: J0171; J0282; J0692; J1100; J2270; J2405; J2704; J3475; J7030; J7060